=== PATIENT | male | born 2000 | race Caucasian/White ===

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

== ENCOUNTER 2021-11-26 12:18 | Emergency (ER) | payer MEDICAID, SELFPAY ==
[2021-11-26 12:25] VITALS: BP 111/70; PULSE 94; RESP 16; TEMP 36.6; O2SAT 98
--- NOTE | 2021-11-26 12:49 | ED.LOWEXIN ---
HPI - Extremity Injury (Lower) General Chief Complaint: Extremity Injury, Lower Stated Complaint: Right Leg Injury Time Seen by Provider: 11/26/21 12:45 Source: patient and RN notes reviewed Mode of arrival: ambulatory Limitations: no limitations History of Present Illness HPI Narrative: 21-year-old male presents with concern for right posterior thigh pain. He reports at work yesterday he was lifting heavy boxes when he stood up and felt the pain. He reports it hurts worse when extending the leg and when weightbearing. He denies any tenderness to the area. Denies redness, warmth, swelling, bruising. He denies open skin. He reports he tried Tylenol complaint: leg injury Related Data Home Medications Medication Instructions Recorded Confirmed citalopram 10 mg tablet 10 mg DAILY 11/26/21 11/26/21 fluticasone propionate 50 1 spray intranasal DAILY 11/26/21 11/26/21 mcg/actuation nasal spray,suspension hydroxyzine HCl 25 mg tablet 25 mg PRN PRN Anxiety 11/26/21 11/26/21 Allergies Allergy/AdvReac Type Severity Reaction Status Date / Time No Known Allergies Allergy Verified 11/26/21 12:32 Review of Systems Review of Systems: CONSTITUTIONAL: Denies malaise, chills, sweats, or fever. SKIN: Denies rash or itching, open skin, laceration, abrasion, redness, warmth, swelling. MUSCULOSKELETAL: Reports right posterior leg pain NEUROLOGIC: Denies numbness, weakness All systems reviewed & are unremarkable except as noted in HPI and below PMFSH Past Medical History Medical History (Updated 11/26/21 @ 12:52 by Kimmy Hou NP) Fracture of forearm, right, closed Urethral stricture in male Surgical History Surgical History (Updated 03/07/20 @ 09:57 by Angela Pagan NP) History of meatotomy of urethra History of surgical removal of keloid right leg History of surgical removal of lesion chest Family History Family History (Updated 03/07/20 @ 09:59 by Angela Pagan NP) Other No significant family history Social History Social History (Updated 03/07/20 @ 10:00 by Angela Pagan NP) Smoking status: Never smoker Alcohol intake: never Substance use: never Gender identity (if verbalized by the patient): Male Comments At time of signature, agree with nursing past medical, surgical, social and family history. There is no relevant family history pertinent to the presenting complaint Exam Narrative: GENERAL: Well-appearing, well-nourished, and in no acute distress. HEAD: Normocephalic, atraumatic. EYES: PERRLA, conjunctivae clear NECK: Supple. CHEST: Speaks in full sentences. No respiratory distress. HEART: Regular rate and rhythm. Normal and equal peripheral pulses. EXTREMITIES: Right upper leg has normal strength and sensation, normal range of motion. No edema or ecchymosis. 5/5 strength with knee flexion and extension. Normal sensation with sensitivity to light touch and pain. No point tenderness. No open wounds, no skin tenting, no devitalized tissue or atrophy, no trophic changes, no obvious deformity, alignment normal, nearby joints and structures intact. Distal pulses palpable and equal bilaterally, skin warm, dry, pink. Capillary refill less than 3 seconds. SKIN: Warm, dry, no rash. NEURO: Alert and oriented x3. PSYCH: Normal mood and affect Course Course Emergency Course: Patient is aware of diagnosis, understands and agrees to treatment plan. Anticipatory guidance given. Patient agrees to follow-up as directed and is aware of reasons to seek care at the emergency department. Portions of this record may have been created with voice recognition software Level of Care: Express Care Visit Vital Signs Vital signs: Vital Signs Temperature 97.8 F 11/26/21 12:25 Pulse Rate 94 11/26/21 12:25 Respiratory Rate 16 11/26/21 12:25 Blood Pressure 111/70 11/26/21 12:25 Pulse Oximetry 98 11/26/21 12:25 Oxygen Delivery Room Air 11/26/21 12:25 Temperat
== END 2021-11-26 12:58 | disposition home or self-care (01) ==
PROVIDERS: Emergency Provider Nurse Practitioner; PCP Pediatrics
DX: S76.911A Strain of unspecified muscles, fascia and tendons at thigh level, right thigh, initial encounter (principal); X50.0XXA Overexertion from strenuous movement or load, initial encounter
CPT/HCPCS: 99212; G0463